=== PATIENT | female | born 1945 | race Caucasian/White ===

== ENCOUNTER 2022-05-24 12:39 | Outpatient (CLI) | payer MEDICARE, SELFPAY ==
--- NOTE | 2022-05-24 13:00 | MR_ITS ---
[address] [address] Phone:?[phone] Fax:?[phone] Referring Physician Information: Matt Hopkins M.D. [address] [facility] [address] Phone:?[phone] Fax:?[phone] Patient:Collin Keating D.O.B:?1945 Sex:?Female Phone:?[phone] [facility] MRN:?[id number] Exam Date:?05/24/2022 ? EXAM: MRI OF THE LEFT SHOULDER CLINICAL INFORMATION: The patient is a 76-year-old with left shoulder pain. Evaluate for rotator cuff injury. PRIOR SURGERY: None reported. COMPARISON STUDIES: There are no prior studies available for comparison. TECHNICAL INFORMATION: Using a 1.5T MR scanner and a localizing shoulder surface coil: 3.0 mm?coronal obliques: PD, T2, STIR 3.0 mm?sagittal obliques: PD, T2 3.0 mm?axials: PD, T2 FINDINGS: Articular/Extraarticular collections: Effusion: Moderate. Subacromial/subdeltoid: No evidence for bursitis. Subcoracoid: No evidence for bursitis. Osseous structures: Proximal humerus: Osteoarthritic changes along the articular surfaces can be seen as discussed below. There is no evidence for acute bony injury of the proximal humerus. No greater or lesser tuberosity fracture can be seen. There is no evidence for Hill-Sachs or reverse Hill-Sachs lesion. Glenoid: Osteoarthritic changes along the articular surfaces of the glenoid can be seen as discussed below. No evidence for fracture or acute bony injury can be seen. Acromioclavicular joint: Mild to moderate changes of acromioclavicular joint arthrosis are present and can be seen on sagittal series 8 image 15. Coracoacromial arch: Acromion morphology: Type I. No evidence for os acromiale. Acromiohumeral space: Within normal limits. Coracohumeral space: Within normal limits. Rotator cuff and deltoid: Supraspinatus: Moderate changes of supraspinatus tendinosis can be seen with mild intrasubstance splitting of the distal tendon fibers. No full-thickness tearing or retraction is seen. No atrophic changes of the supraspinatus muscle belly are identified. Infraspinatus: Mild to moderate infraspinatus tendinosis can be seen. There is no evidence for full or partial-thickness tearing. No atrophic changes of the infraspinatus muscle belly are present. Teres minor: No evidence for tendinosis, tearing, or associated muscle belly atrophy. Subscapularis: Mild to moderate subscapularis tendinosis can be seen. There is no evidence for full or partial-thickness tearing. No atrophic changes of the subscapularis muscle belly are noted. Deltoid: No evidence for strain or tearing. Biceps tendon: The intra-articular and biceps sulcus portions of the biceps tendon are normal. There is no evidence for rupture, dislocation, or subluxation. Glenohumeral joint and labrum: Articular Cartilage: Broad-based areas of full-thickness and near full-thickness chondral loss can be seen along the articular surfaces of the glenohumeral articulation. There is flattening and irregularity of the articular surfaces with spurring along the articular margins. Mild areas of subcortical cystic change and subcortical edema along the articular surfaces can be seen. The findings are in keeping with moderate osteoarthritis. Labrum: Broad-based tearing and degeneration of the entire glenoid labrum can be seen. There is no definite evidence for well-defined paralabral ganglion cyst formation. Capsular Soft Tissues: No definite capsular abnormalities of the glenohumeral joint are seen. No evidence for capsular tearing is present and there are no MR signs of adhesive capsulitis. CONCLUSION: 1. Moderate osteoarthritic changes of the glenohumeral articulation with a moderate glenohumeral joint effusion. 2. Broad-based tearing and degeneration of the glenoid labrum. 3. Moderate supraspinatus tendinosis with mild intrasubstance splitting. Mild to moderate infraspinatus and subscapularis tendinosis can be seen. No full- thickness tearing or retraction of the rotator cuff is identified. 4. The long head of the biceps tendon appears intact. 5. Mild to moderate acromioclavicular joint arthrosis. AEC Electronically signed on 05/25/2022 6:35:00 AM by Kamaljit Bañuelos M.D.
== END 2022-05-24 12:40 | disposition home or self-care (01) ==
LOC: MRI 12:40
PROVIDERS: PCP Internal Medicine; Visit Provider Orthopaedic Surgery Sports Medicine
DX: M25.512 Pain in left shoulder (principal); M19.012 Primary osteoarthritis, left shoulder; S46.002A Unspecified injury of muscle(s) and tendon(s) of the rotator cuff of left shoulder, initial encounter
CPT/HCPCS: 73221

== ENCOUNTER 2022-09-10 11:15 | Outpatient (CLI) | payer MEDICARE, SELFPAY ==
[2022-09-10 13:28] LABS: Cholesterol* 237 mg/dL (90-199)
[2022-09-10 13:29] LABS: HDL Cholesterol* 91 mg/dL (>=50); LDL Cholesterol Calculated 124 mg/dL (<100); Triglycerides* 108 mg/dL (40-149)
== END 2022-09-10 11:16 | disposition home or self-care (01) ==
LOC: NFLDREF 11:15
PROVIDERS: PCP Internal Medicine; Visit Provider Internal Medicine
DX: E78.5 Hyperlipidemia, unspecified (principal)
CPT/HCPCS: 80061

== ENCOUNTER 2022-10-31 11:34 | Outpatient (CLI) | payer MEDICARE, SELFPAY ==
[2022-10-31 11:54] VITALS: BP 165/92; PULSE 73; RESP 16; O2SAT 98
[2022-10-31] MEDS: TETRACAINE 0.5% OPHTH 1 DROP EYE-RIGHT ×3 (12:00→12:19)
[2022-10-31] MEDS: BRIMONIDINE TARTRATE 0.2% OPHTH 1 DROP EYE-RIGHT ×2 (12:04→12:25)
--- NOTE | 2022-10-31 12:26 | W.PM.OPTPROC ---
Procedure Note Date of procedure: 10/31/22 Will [facility] bill your pro fee for this procedure?: Yes Procedure Description: SURGEON: Mily Nuñez MD PREOPERATIVE DIAGNOSIS: Posterior capsular opacity, right eye POSTOPERATIVE DIAGNOSIS: Posterior capsular opacity, right eye PROCEDURE: YAG laser capsulotomy, right eye ANESTHESIA: Topical. ESTIMATED BLOOD LOSS: None PATHOLOGY SPECIMEN: None COMPLICATIONS: None INDICATIONS: See consult note for details. The risks, benefits and alternatives of the procedure were explained to the patient, who elected to proceed and signed informed consent to do so. PROCEDURE: The patient was brought to the pre-holding area where the right eye was identified as the operative eye. I placed my initials above this eye. The patient received 2 sets of 1 drop of 0.5% tetracaine and 1 drop of 1% tropicamide. They also received 1 drop of 0.2% brimonidine. They received 1 drop of 0.5% tetracaine immediately prior to bringing them back for the procedure. The patient was then brought to the procedure room where the right eye was again identified as the operative eye. A YAG Oumar capsulotomy lens was placed on the eye. The laser was administered using a total number of 11 shots with an energy of 2.4 mJ per shot for a total energy of 26 mJ. The patient tolerated the procedure well. DISPOSITION: The patient was taken back to the pre-holding area and given 1 drop of 0.2% brimonidine in the right eye. They were discharged to home in stable condition. The patient was instructed to call me or go to the emergency department with any sudden change, including dramatic loss of vision, severe pain in the eye or eyebrow region, nausea, or vomiting. The patient was instructed to use the 0.2% brimonidine 1 drop 2 times a day in the right eye for 1 week. The patient will follow up in the clinic in 1-2 weeks. Surgeon: Mily Nuñez MD
== END 2022-10-31 12:26 | disposition home or self-care (01) ==
LOC: OP CLINIC 11:35
PROVIDERS: PCP Internal Medicine; Visit Provider Ophthalmology
DX: H26.9 Unspecified cataract (principal)
CPT/HCPCS: 66821; A9270

== ENCOUNTER 2022-11-21 11:52 | Outpatient (CLI) | payer MEDICARE, SELFPAY ==
[2022-11-21 11:55] VITALS: BP 134/72; PULSE 86; RESP 16; O2SAT 97
[2022-11-21] MEDS: TETRACAINE 0.5% OPHTH 1 DROP EYE-LEFT ×3 (12:01→12:25)
[2022-11-21] MEDS: BRIMONIDINE TARTRATE 0.2% OPHTH 1 DROP EYE-LEFT ×2 (12:03→12:34)
--- NOTE | 2022-11-21 12:35 | W.PM.OPTPROC ---
Procedure Note Date of procedure: 11/21/22 Will [facility] bill your pro fee for this procedure?: Yes Procedure Description: SURGEON: Mily Nuñez MD PREOPERATIVE DIAGNOSIS: Posterior capsular opacity, left eye POSTOPERATIVE DIAGNOSIS: Posterior capsular opacity, left eye PROCEDURE: YAG laser capsulotomy, left eye ANESTHESIA: Topical. ESTIMATED BLOOD LOSS: None PATHOLOGY SPECIMEN: None COMPLICATIONS: None INDICATIONS: See consult note for details. The risks, benefits and alternatives of the procedure were explained to the patient, who elected to proceed and signed informed consent to do so. PROCEDURE: The patient was brought to the pre-holding area where the left eye was identified as the operative eye. I placed my initials above this eye. The patient received 2 sets of 1 drop of 0.5% tetracaine and 1 drop of 1% tropicamide. They also received 1 drop of 0.2% brimonidine. They received 1 drop of 0.5% tetracaine immediately prior to bringing them back for the procedure. The patient was then brought to the procedure room where the left eye was again identified as the operative eye. A YAG Oumar capsulotomy lens was placed on the eye. The laser was administered using a total number of 19 shots with an energy of 2.4 mJ per shot for a total energy of 46 mJ. The patient tolerated the procedure well. DISPOSITION: The patient was taken back to the pre-holding area and given 1 drop of 0.2% brimonidine in the left eye. They were discharged to home in stable condition. The patient was instructed to call me or go to the emergency department with any sudden change, including dramatic loss of vision, severe pain in the eye or eyebrow region, nausea, or vomiting. The patient was instructed to use the 0.2% brimonidine 1 drop 2 times a day in the left eye for 1 week. The patient will follow up in the clinic in 1-2 weeks Surgeon: Mily Nuñez MD
== END 2022-11-21 12:35 | disposition home or self-care (01) ==
LOC: EYE PRC 11:52
PROVIDERS: PCP Internal Medicine; Visit Provider Ophthalmology
DX: H26.9 Unspecified cataract (principal)
CPT/HCPCS: 66821; A9270

== ENCOUNTER 2023-02-27 12:40 | Outpatient (CLI) | payer MEDICARE, SELFPAY ==
--- NOTE | 2023-02-27 13:00 | CRLHL7_ITS ---
For Patients: As a result of the Century Cures Act, medical imaging exams and procedure reports are released immediately into your electronic medical record. You may view this report before your referring provider. If you have questions, please contact your health care provider. DXA BONE MINERAL DENSITY STUDY Reason for exam: Osteopenia. Current height (in): 64.0. Weight (lb): 155.0. Menopause age: 46. Ethnicity: White. 1. Have you had a previous hip or vertebral fracture? No. 2. Have you had any fractures during your adult life which did not result from significant trauma (e.g., auto accident)? No. 3. Did either of your parents have a hip fracture? No. 4. Do you smoke? No. 5. Have you ever taken Glucocorticoids? No. 6. Do you have rheumatoid arthritis? No. 7. Do you have secondary osteoporosis? No. 8. Do you drink 3 or more alcoholic drinks per day? No. 9. Are you being treated for osteoporosis? No. 10. Have you ever taken any of the following medications: Actonel, Evista, Fosamax, Miacalcin, Reclast, Boniva, Forteo, HRT (i.e. estrogen/hormone therapy), Protelos, Prolia, Vitamin D, Calcium, other ??? please specify. ANSWER: Yes, vitamin D, calcium. 11. Do you have any of the following medical conditions: Anorexia or bulimia, asthma or emphysema, end stage renal disease, hyperparathyroidism, any seizure disorders, cancer, inflammatory bowel diseases, hysterectomy, other ??? please specify. ANSWER: Yes, hysterectomy. 12. What was your maximum height (inches)? 66. 13. Do you perform weight bearing exercise regularly? No. 14. Do you regularly consume dairy products? Yes. 15. Do you drink caffeinated beverages? Yes. 16. At what age did your period start? 15. 17. Are you premenopausal? No. 18. How many full term pregnancies have you had? 3. 19. Have you ever missed your period for more than 6 months in a row (not including or menopause)? Yes. TECHNIQUE: Bone mineral density study was performed using the [employer]. FINDINGS: The results of the study expressed as bone mineral density (BMD) are as follows: Lumbar spine L1 to L4: BMD: 0.840 g/cm2. T-score: -1.9. Z-score: 0.6. Neck Left: BMD: 0.656 g/cm2. T-score: -1.7. Z-score: 0.4. Right: BMD: 0.679 g/cm2. T-score: -1.5. Z-score: 0.6. Total Left: BMD: 0.717 g/cm2. T-score: -1.8. Z-score: 0.0. Right: BMD: 0.777 g/cm2. T-score: -1.4. Z-score: 0.5. IMPRESSION: Osteopenia. *Comparison exams done prior to 02/2020 were performed on different unit, [employer]. COMPARISON: Compared with scan of 11/01/2011, the bone mineral density has decreased by 7.6 percent at the spine and decreased by 0.7 percent at the hip. FRAX 10-year Fracture Risk Major Osteoporotic Fracture: 13 percent Hip Fracture: 3.0 percent Reported Risk Factors: [place] () Neck BMD=0.656, BMI=26.6 Jay Briseno M.D. Diagnostic Radiologist [email or web address] [email or web address] / be/Dictated by: Jay Briseno MD @ 02/27/2023 3:32:00 PM (Electronically Signed)
--- NOTE | 2023-02-27 14:00 | CRLHL7_ITS ---
For Patients: As a result of the Century Cures Act, medical imaging exams and procedure reports are released immediately into your electronic medical record. You may view this report before your referring provider. If you have questions, please contact your health care provider. BILATERAL SCREENING MAMMOGRAM WITH COMPUTER-AIDED DETECTION TECHNIQUE: CC and MLO views were obtained. These mammographic images have been obtained using full-field digital technique. These mammographic images were interpreted with the benefit of computer-aided detection. COMPARISON FILM: 08/20/18, 01/11/17, 08/08/15. FINDINGS: The breasts are heterogeneously dense, which may obscure small masses IMPRESSION: There is no radiographic evidence for malignancy. ASSESSMENT: BI-RADS Category 2: Benign RECOMMENDATION: Routine screening mammogram in 1 year. A lay language report of this examination will be provided to the patient. Jay Briseno M.D. Diagnostic Radiologist [email or web address] JOSÉ/teja Transcribed: 5:31 [email or web address] lezama/Dictated by: Jay Briseno MD @ 02/28/2023 9:27:00 AM (Electronically Signed)
== END 2023-02-27 12:41 | disposition home or self-care (01) ==
LOC: RAD 12:41
PROVIDERS: PCP Internal Medicine; Visit Provider Internal Medicine
DX: Z12.31 Encounter for screening mammogram for malignant neoplasm of breast (principal); R92.2 Inconclusive mammogram; M85.89 Other specified disorders of bone density and structure, multiple sites
CPT/HCPCS: 77067; 77080

== ENCOUNTER 2023-07-30 13:30 | Outpatient (RCR) | payer MEDICARE, SELFPAY ==
--- NOTE | 2023-07-23 10:37 | PT.OPE ---
[facility] Eval PT [facility] Outpatient Eval Start: 07/22/23 15:31 Freq: Status: Active Protocol: Document 07/22/23 15:32 ALBA (Rec: 07/22/23 15:33 ALBA [id number]) E-signed By Aurelio Hurtado DPT, MS Physical Therapy Outpatient Evaluation Insurance Information Recert Due Date 10/20/23 Insurance Name Medicare B,[employer] Medical Diagnosis Cervicalgia Treating Diagnosis L-sided CS radicular sxs, decreased B CS passive and active ROM, decreased B CS flexibility, decreased syrup mixer helper strength, deep cervical flexor weakness and L UE weakness. Subjective Subjective Pt is a 77 y.o. female who presents to PT with c/o acute onset of L-sided CS pain and radicular sxs since removing a tarp and pulling on a heavy container of wood with immediate onset of pain. Describes sxs as high levels of sharp, stabbing ache on her L lateral neck extending distally along her L forearm to her 2nd-4th digits with near constant numbness and tingling with occasional sharp , shooting and electric pain to her finger tips. Finds herself guarding her L UE with decreased sxs with putting her hand up on her head. Also has limited CS rot to the L since sx onset due to fear on making sxs worst. Previous MRI earlier this year at her chiropractor found a L shoulder labral tear with recent cortisone injection decreasing shoulder sxs. PMH includes CS OA and osteopenia. AGGR factors: lifting, reaching, gripping, turning head to L, driving, sleeping. ALLEV factors: advil, heat, holding L UE up above her head . Pt hopes to decrease sxs and return to PLOF. Pain Comments -06/11 Current Work Status Retired Preferred Name [employer] Precautions Therapy Limitations/Systems Review Not Limited Objective Functional Test Performed & Score NDI: 76% Assessment Assessment/Impression Pt displays + L-sided CS radicular testing with decreased L syrup mixer helper strength and decreased light touch in 2nd- 4th digits. Pt displays fear- avoidance of movement due to pain and was encouraged to use move her L UE and neck as tolerated to decrease significant tightness in her L CS and UE. Decreased B (L>R) CS ROM, muscle flexibility, and B TS periscap and CS muscular weakness also contributing to pt?s sxs. + Jenni testing found along with hypertonicity and hypersensitivity of L scalene musculature Attempted manual CS traction in supine with elevated sxs. Pt unable to crystal pressure beyond gentle massage with good response to US, CS stretching and rows. Pt ?s high pain levels limited interventions performed and she may benefit from prednisone to decrease irritation/ inflammation. She would benefit from continued skilled therapy to address these limitations if sxs persist. Primary Functional Limitations Lifting, reaching, gripping, turning head to L, driving, sleeping Plan of Care Rehabilitation Potential Excellent Physical Therapy Goals Short-term goals to be completed in 4 weeks: 1. Pt will report >50% radicular sxs for >3 consecutive days to improved crystal to daily activities. 2. Pt will report improved quality of sleep waking <3x per night due to neck pain for >3 consecutive days in a given week. Long-term goals to be completed in 10 weeks: 1. Pt will be independent and compliant with HEP 2. Pt will display increased L shoulder flex, ABD, low and mid trap strength >/=4+/5 to improve crystal to yardwork and household cleaning activities. 3. Pt will display improved B CS rot AROM >65 deg to check blind spots while driving. 4. Pt will report >12-point improvement in NDI to significantly improve crystal to daily activities. Coordination/Communication With Referral Source Treatment Plan/Direct Interventions Joint Mobilization,Therapeutic Exercises,Traction ( Mechanical),Ultrasound Frequency/Duration 1-2x per week for least 6-10 visits, decreasing visit frequency as able. Patient Will Be Discharged From Therapy Completion of LTG(s),Skills Plateau,Independent w/HEP, Independently Progressing Evaluation Billing Untimed Code Treatment Minutes 26 Complexity Moderate Certification Information Initial Certification Date 07/22/23 Ending Certification Date 10/20/23 Provider Signature Shows Agreement With POC & Medical Necessity Physician Signature & Date Requested Please Sign/Date Here Physician Comment/Change : Physician NPI Number #
== END 2023-10-16 10:55 | disposition home or self-care (01) ==
PROVIDERS: PCP Internal Medicine; Visit Provider Internal Medicine
DX: M54.2 Cervicalgia (principal); Z74.09 Other reduced mobility; R29.898 Other symptoms and signs involving the musculoskeletal system; Z51.89 Encounter for other specified aftercare
CPT/HCPCS: 97035; 97110; 97140; 97162

== ENCOUNTER 2024-07-23 09:31 | Outpatient (CLI) | payer MEDICARE, SELFPAY | END 2024-07-23 09:32 | disposition home or self-care (01) | LOC: NFLDREF 07-26 13:12 | PROVIDERS: PCP Internal Medicine; Referring Provider Internal Medicine; Visit Provider Internal Medicine | DX: E78.5 Hyperlipidemia, unspecified (principal); Z13.9 Encounter for screening, unspecified | CPT/HCPCS: 80053; 80061 ==

== ENCOUNTER 2024-10-23 11:20 | Outpatient (CLI) | payer MEDICARE, SELFPAY ==
--- NOTE | 2024-10-23 11:30 | CRLHL7_ITS ---
For Patients: As a result of the Century Cures Act, medical imaging exams and procedure reports are released immediately into your electronic medical record. You may view this report before your referring provider. If you have questions, please contact your health care provider. BILATERAL SCREENING MAMMOGRAM WITH COMPUTER-AIDED DETECTION AND TOMOSYNTHESIS TECHNIQUE: CC and MLO views were obtained. These mammographic images have been obtained using full-field digital technique. These mammographic images were interpreted with the benefit of computer-aided detection. Breast Tomosynthesis was used in this interpretation. COMPARISON FILM: 02/27/23, 08/20/18, 01/11/17. FINDINGS: The breasts are heterogeneously dense, which may obscure small masses. IMPRESSION: There is no radiographic evidence for malignancy. ASSESSMENT: BI-RADS Category 1: Negative RECOMMENDATION: Routine screening mammogram in 1 year. A lay language report of this examination will be provided to the patient. Jay Briseno M.D. Diagnostic Radiologist [email or web address] SP/Dictated by: Jay Briseno MD @ 10/28/2024 11:21:00 AM (Electronically Signed)
== END 2024-10-23 11:21 | disposition home or self-care (01) ==
LOC: MAMMO 11:21
PROVIDERS: PCP Internal Medicine; Visit Provider Internal Medicine
DX: Z12.31 Encounter for screening mammogram for malignant neoplasm of breast (principal); R92.333 Mammographic heterogeneous density, bilateral breasts
CPT/HCPCS: 77063; 77067